=== PATIENT | female | born 1950 | race Caucasian/White ===

== ENCOUNTER 2020-02-01 15:51 | Emergency (ER) | payer OTHER ==
[~2020-02-01] VITALS: Ht 160 cm; Wt 52.2 kg
[~2020-02-01 15:51] MED LIST: ATELVIA35 MG; CLONAZEPAM0.25 MG/TA; PREMARIN42.5 G1
== END 2020-02-01 16:48 | disposition home or self-care (01) ==
LOC: ER 15:51
DX: M25.532 Pain in left wrist (principal)

== ENCOUNTER 2020-06-16 15:35 | Outpatient (CLI) | payer OTHER | END 2020-06-16 15:42 | disposition home or self-care (01) | LOC: EDBD 15:35 → LAB 15:35 | DX: N76.2 Acute vulvitis (principal) ==